=== PATIENT | female | born 1970 | race Caucasian/White ===

== ENCOUNTER 2016-11-26 20:11 | Emergency (ER) | payer MEDICAID, OTHER ==
[~2016-11-26] VITALS: Ht 154.9 cm; Wt 77.2 kg
[~2016-11-26 20:11] MED LIST: COPA20KI INJ; DOXY100T PO; LORA10TA PO; NAPR220T95 PO; OXYC5 PO; PROZ20CA11 PO; SILV1CRE80 TOP; SUMA100T2 PO; TOPI200 PO
[2016-11-26 20:16] VITALS: BP 190/102; PULSE 78; RESP 28; TEMP 99.1; O2SAT 100
[2016-11-26 20:20] VITALS: BP 177/89; PULSE 76; RESP 20; TEMP 99.1; O2SAT 100
[2016-11-26] MEDS ORDERED: PROZ40CA PO (20:35)
[2016-11-26] MEDS ORDERED: PERC10TA27 PO (20:35)
[2016-11-26] MEDS ORDERED: LEVO25TA4 PO (20:35)
[2016-11-26] MEDS ORDERED: NAPR250T PO (20:35)
[2016-11-26] MEDS ORDERED: TOPA100T11 PO (20:39)
[2016-11-26] MEDS ORDERED: MORP1TAB26 PO (20:39)
[2016-11-26] MEDS ORDERED: TRAZ100T6 PO (20:40)
[2016-11-26] MEDS ORDERED: SODIUM CHLORIDE 0.9% FLUSH 10 ML FLUSH IVF PRN (20:45)
[2016-11-26] MEDS ORDERED: LORazepam 2 MG/ML VIAL IV PUSH ONE (20:45)
--- NOTE | 2016-11-26 20:46 | PD ---
HPI Chief Complaint: Chest Pain Time Seen by Provider: 20:26 Travel History International Travel<30 days: No Contact w/Intl Traveler<30days: No Traveled to known affect area: No History of Present Illness HPI The patient is a 46-year-old female that complains of sharp, stabbing chest pain that radiates to her left arm and back for 24 hours. She states she has a history of fibromyalgia. She also states she has a history of multiple sclerosis. She denies any new focal neurologic change. She does not smoke and does not have any history of heart disease. She states her pain is a 10 over 10. She denies any diaphoresis but states she has shortness of breath and is always nauseated. She states he has been nauseated for years. She states she has chronic pain and would like to do anything to get away from the pain. She is not suicidal however. The patient takes Percocet 10/325 twice daily and morphine 60 mg twice daily. She states she is allergic to acetaminophen but takes Percocet without any problem. PFSH Past Medical History Arthritis: Yes (LOWER BACK) Asthma: No Autoimmune Disease: Yes ([place]) Blood Disorders: No Anxiety: Yes Depression: Yes Heart Rhythm Problems: No Cancer: No Cardiovascular Problems: No High Cholesterol: Yes Chemotherapy: No Chest Pain: No Congestive Heart Failure: No COPD: No Cerebrovascular Accident: No Diabetes: No Diminished Hearing: No Fibromyalgia: Yes Gastrointestinal Disorders: Yes GERD: Yes Glaucoma: No Genitourinary: No Headaches: Yes Hepatitis: No Hiatal Hernia: No Hypertension: Yes Immune Disorder: No Kidney Stones: No Musculoskeletal: Yes (CHRONIC NECK & BACK PAIN "BULGING DISCS"- "LUMBAR FACET SYNDROME") Neurologic: Yes (STATES HAS MS) Psychiatric: Yes Reproductive: No Respiratory: No Integumentary: Yes (acne-reports "i pick sores".) Immunizations Current: Yes Migraines: Yes Myocardial Infarction: No Radiation Therapy: No Renal Failure: No Seizures: No Sickle Cell Disease: No Sleep Apnea: No Thyroid Disease: No Ulcer: No : 2 Para: 2 Past Surgical History Abdominal Surgery: No AICD: No Arteriovenous Shunt: No Cardiac Surgery: No Endocrine Surgery: No Genitourinary Surgery: No Gynecologic Surgery: No Insulin Pump: No Joint Replacement: No Oral Surgery: No Pacemaker: No Thoracic Surgery: No Tympanostomy Tube: Yes Other Surgery: Yes (BX BACK OF HEAD) Social History Alcohol Use: No Tobacco Use: No Substance Use: No Allergies-Medications (Allergen,Severity, Reaction): Coded Allergies: Sulfa (Sulfonamide Antibiotics) (Verified Allergy, Intermediate, Nausea/ Vomiting, 11/26/16) acetaminophen (Unverified Allergy, Mild, LIVER PROBLEMS, 11/26/16) Reported Meds & Prescriptions Reported Meds & Active Scripts Active Vistaril (Hydroxyzine Pamoate) 25 Mg Cap 25 Mg PO TID PRN Reported Trazodone (Trazodone HCl) 100 Mg Tablet 200 Mg PO HS Morphine ER (Morphine Sulfate) 60 Mg Tab 60 Mg PO BID Topamax (Topiramate) 100 Mg Tab 100 Mg PO TID Levothyroxine (Levothyroxine Sodium) 25 Mcg Tab 25 Mcg PO DAILY Percocet (Oxycodone-Acetaminophen) 10-325 mg Tab 1 Tab PO BID Naproxen 250 Mg Tab 220 Mg PO DAILY Prozac (Fluoxetine HCl) 40 Mg Cap 60 Mg PO DAILY Review of Systems Except as stated in HPI: all other systems reviewed are Neg Physical Exam Narrative GENERAL: The patient is alert, oriented 3, tearful, extremely anxious in moderate apparent distress with her multiple aches and pains. She appears to be hyperventilating and her respiratory rate is 28. Her blood pressure is 190/ 102. Oximetry is 100%. Her pulse is 78 and temperature 99.1. She does not appear in any way intoxicated. SKIN: Focused skin assessment warm/dry. No skin rash is seen. HEAD: Atraumatic. Normocephalic. EYES: Pupils equal and round. No scleral icterus. No injection or drainage. ENT: No nasal bleeding or discharge. Mucous membranes pink and moist. NECK: Trachea midline. No JVD. There is no meningismus present. CARDIOVASCULAR: Regular rate and rhythm. No murmur appreciated. I can reproduce much of the patient's chest pain by pressing on the chest wall where the patient perceives her pain. RESPIRATORY: No accessory muscle use. Clear to auscultation. Breath sounds equal bilaterally. GASTROINTESTINAL: Abdomen soft, non-tender, nondistended. Hepatic and splenic margins not palpable. MUSCULOSKELETAL: No obvious deformities. No clubbing. No cyanosis. No edema. NEUROLOGICAL: Awake and alert. No obvious cranial nerve deficits. Motor grossly within normal limits. Normal speech. PSYCHIATRIC: The patient is extremely anxious; insight and judgment normal. Data Data Last Documented VS Vital Signs Date Time Temp Pulse Resp B/P (MAP) Pulse Ox O2 Delivery O2 Flow Rate FiO2 11/26/16 22:28 62 132/77 (95) 96 Room Air 11/26/16 21:14 18 11/26/16 20:20 99.1 Orders Orders Chest, Pa & Lat (11/26/16 20:38) Electrocardiogram (11/26/16 20:38) Complete Blood Count With Diff (11/26/16 20:38) Comprehensive Metabolic Panel (11/26/16 20:38) Troponin I (11/26/16 20:38) Ecg Monitoring (11/26/16 20:38) Iv Access Insert/Monitor (11/26/16 20:38) Oximetry (11/26/16 20:38) Oxygen Administration (11/26/16 20:38) Sodium Chloride 0.9% Flush (Ns Flush) (11/26/16 20:45) Lorazepam Inj (Ativan Inj) (11/26/16 20:45) Potassium Chloride (Kcl) (11/26/16 21:15) Urinalysis - C+S If Indicated (11/26/16 21:21) Ondansetron Inj (Zofran Inj) (11/26/16 22:30) Labs Laboratory Tests Test 11/26/16 20:25 11/26/16 22:35 White Blood Count 8.1 TH/MM3 Red Blood Count 4.03 MIL/MM3 Hemoglobin 11.6 GM/DL Hematocrit 34.3 % Mean Corpuscular Volume 85.1 FL Mean Corpuscular Hemoglobin 28.8 PG Mean Corpuscular Hemoglobin Concent 33.9 % Red Cell Distribution Width 14.1 % Platelet Count 312 TH/MM3 Mean Platelet Volume 8.3 FL Neutrophils (%) (Auto) 77.0 % Lymphocytes (%) (Auto) 13.2 % Monocytes (%) (Auto) 7.4 % Eosinophils (%) (Auto) 2.2 % Basophils (%) (Auto) 0.2 % Neutrophils # (Auto) 6.2 TH/MM3 Lymphocytes # (Auto) 1.1 TH/MM3 Monocytes # (Auto) 0.6 TH/MM3 Eosinophils # (Auto) 0.2 TH/MM3 Basophils # (Auto) 0.0 TH/MM3 CBC Comment DIFF FINAL Differential Comment Blood Urea Nitrogen 12 MG/DL Creatinine 0.77 MG/DL Random Glucose 110 MG/DL Total Protein 6.7 GM/DL Albumin 3.0 GM/DL Calcium Level 8.1 MG/DL Alkaline Phosphatase 122 U/L Aspartate Amino Transf (AST/SGOT) 31 U/L Alanine Aminotransferase (ALT/SGPT) 54 U/L Total Bilirubin 0.3 MG/DL Sodium Level 141 MEQ/L Potassium Level 3.4 MEQ/L Chloride Level 111 MEQ/L Carbon Dioxide Level 23.4 MEQ/L Anion Gap 7 MEQ/L Estimat Glomerular Filtration Rate 81 ML/MIN Troponin I LESS THAN 0.02 NG/ML Urine Color STRAW Urine Turbidity SLIGHT Urine pH 7.5 Urine Specific [place] 1.008 Urine Protein NEG mg/dL Urine Glucose (UA) NEG mg/dL Urine Ketones NEG mg/dL Urine Occult Blood NEG Urine Nitrite NEG Urine Bilirubin NEG Urine Leukocyte Esterase NEG Urine Squamous Epithelial Cells 0-5 /hpf Urine Amorphous Sediment MOD Urine Mucus OCC /lpf Microscopic Urinalysis Comment CULT NOT INDICATED MDM Medical Decision Making Medical Screen Exam Complete: Yes Emergency Medical Condition: Yes Medical Record Reviewed: Yes Interpretation(s) EKG shows sinus rhythm with a rate of [address] elevation or depression. The chest x-ray shows no acute disease. The CBC is normal except for a hematocrit of 34.3. The complete metabolic profile shows potassium 3.4, GFR of 81, calcium 8.1, ALT of 54 and albumin of 3.0 but is otherwise normal. The troponin I is normal. The urinalysis is normal and culture is not indicated. Differential Diagnosis Anxiety, chronic pain, chest wall pain, pleuritic pain, esophageal pain, acute coronary syndrome-unlikely, gastrointestinal pain, electrolyte imbalance Narrative Course The patient has anxiety and chronic pain. There is no evidence of any cardiac involvement. She does have a mild hypokalemia and will drink more juices and ingest more fruits to remedy this. The Patient is already on large amounts of narcotics. She will be given Vistaril 25 mg 3 times a day for anxiety. She is to follow-up with her primary care physician and is given her blood work in the hope that she will bring it to her primary care physician. Apparently, Dr. Esteban writes her her pain medications. The chest pain appears to be chest wall pain related. Additional Instructions: As we discussed, drink more fruit juices and eat more fruits to bring up your potassium. He was only slightly low. The Vistaril is to help the anxiety and it is non-addicting. Follow-up with your primary care physician. Med/Other Pt SpecificInfo: Prescription(s) given Scripts Hydroxyzine Pamoate (Vistaril) 25 Mg Cap 25 MG PO TID Y for ANXIETY, #20 CAP 0 Refills Prov: Pietro High MD 11/26/16 Disposition: 01 DISCHARGE HOME Condition: Stable Pietro High MD Nov 26, 2016 20:46
[2016-11-26 20:50] LABS: AUTOMATED NEUTROPHIL # 6.2 TH/MM3 (1.8-7.7); BASOPHIL % 0.2 % (0.0-2.0); EOSINOPHIL # 0.2 TH/MM3 (0-0.4); EOSINOPHIL % 2.2 % (0.0-4.0); HEMATOCRIT 34.3 % (35.0-46.0); HEMO FLAGS DIFF FINAL; LYMPH % 13.2 % (9.0-44.0); LYMPHOCYTE # 1.1 TH/MM3 (1.0-4.8); MEAN CELL VOLUME 85.1 FL (80.0-100.0); MEAN CORPUSCULAR HEMOGLOBIN 28.8 PG (27.0-34.0); MEAN CORPUSCULAR HGB CONC 33.9 % (32.0-36.0); MONO % 7.4 % (0.0-8.0); PLATELET COUNT 312 TH/MM3 (150-450); RED BLOOD COUNT 4.03 MIL/MM3 (4.00-5.30); RED CELL DISTRIBUTION WIDTH 14.1 % (11.6-17.2); WHITE BLOOD COUNT 8.1 TH/MM3 (4.0-11.0)
[2016-11-26 20:59] VITALS: BP 191/108; PULSE 64; O2SAT 99
--- NOTE | 2016-11-26 21:06 | RADRPT ---
EXAM DATE/TIME: 11/26/2016 20:43 [facility] COMPARISON: CHEST PA & LAT, June 17, 2014, 10:53. INDICATIONS : Chest pain. MEDICAL HISTORY : Multiple sclerosis. Fibromyalgia. SURGICAL HISTORY : None. ENCOUNTER: Initial ACUITY: 1 day PAIN SCORE: 10/10 LOCATION: Left chest FINDINGS: PA and lateral views of the chest demonstrate the lungs to be symmetrically aerated without evidence of mass, infiltrate or effusion. The cardiomediastinal contours are unremarkable. Osseous structure s are intact. CONCLUSION: No acute disease. Alber Aguilera MD on November 26, 2016 at 21:05 Board Certified Radiologist. This report was verified electronically.
[2016-11-26 21:07] LABS: CHLORIDE 111 MEQ/L (98-107); POTASSIUM 3.4 MEQ/L (3.5-5.1); SODIUM (NA) 141 MEQ/L (136-145)
[2016-11-26 21:11] LABS: ANION GAP 7 MEQ/L (5-15); BICARBONATE 23.4 MEQ/L (21.0-32.0); BLOOD UREA NITROGEN 12 MG/DL (7-18)
[2016-11-26 21:14] VITALS: BP 153/73; PULSE 78; RESP 18; O2SAT 98
[2016-11-26 21:14] LABS: ALT (GPT) 54 U/L (10-53); AST (GOT) 31 U/L (15-37); GLOMERULAR FILTRATION RATE 81 ML/MIN (>89)
[2016-11-26 21:15] LABS: TOTAL BILIRUBIN ADULT 0.3 MG/DL (0.2-1.0)
[2016-11-26] MEDS ORDERED: POTASSIUM CHLORIDE 20 MEQ CONTROLLED RELEASE TAB PO ONE (21:15)
[2016-11-26 21:17] LABS: ALKALINE PHOSPHATASE 122 U/L (45-117)
[2016-11-26] MEDS ORDERED: VIST25CA PO (21:27)
[2016-11-26 22:28] VITALS: BP 132/77; PULSE 62; O2SAT 96
[2016-11-26] MEDS ORDERED: ONDANSETRON HCL 4 MG/2 ML VIAL IV ONE (22:30)
[2016-11-26 22:42] LABS: BLOOD, URINE NEG (NEG); GLUCOSE,URINE NEG (NEG); KETONE, URINE NEG (NEG); NITRITE,URINE NEG (NEG); PH, URINE 7.5 (5.0-8.5)
[2016-11-26 22:52] LABS: URINE COLOR STRAW (YELLW/STRAW)
[2016-11-26 22:53] LABS: MUCUS URINE OCC /lpf (OCC); SQUAMOUS EPITHELIAL CELL URINE 0-5 /hpf (0-5)
[2016-11-26 22:54] LABS: COMMENT (UR) CULT NOT INDICATED; CULTURE IF INDICATED CULT NOT INDICATED
--- NOTE | 2016-11-27 14:00 | EKG ---
Date Performed: 11/26/2016 Time Performed: 20:19:35 PTAGE: 46 years EKG: Sinus rhythm POSSIBLE LEFT ATRIAL ENLARGEMENT BORDERLINE ECG Compared to prior tracing no significant change PREVIOUS TRACING : 09/23/2012 22.36 DOCTOR: Jarett Jurado Interpretating Date/Time 11/27/2016 13:58:59
== END 2016-11-26 23:27 | disposition home or self-care (01) ==
LOC: PHED 20:11
DX: R07.89 Other chest pain (principal); M79.7 Fibromyalgia; G35 Multiple sclerosis; E78.00 Pure hypercholesterolemia, unspecified; I10 Essential (primary) hypertension; R94.31 Abnormal electrocardiogram [ECG] [EKG]
CPT/HCPCS: 71020; 80053; 81001; 84484; 85025; 93005; 96374; 96375; 99285; J2060; J2405